=== PATIENT | female | born 1990 | race Caucasian/White ===

== ENCOUNTER 2017-07-30 11:27 | Emergency (ER) | payer OTHER ==
[2017-07-30 11:48] VITALS: RESP 16
--- NOTE | 2017-07-30 12:51 | EDPHY ---
HPI/HX/ROS/PE/MDM Narrative: CHIEF COMPLAINT: Abdominal pain HISTORY OF PRESENT ILLNESS: The patient is a 27 y/o female arriving with her boyfriend complaining of waxing and waning abdominal pain for the last week worsening yesterday. She initially had RLQ abdominal pain and was evaluated at an ED in [place]. She reports she had a normal RUQ and RLQ ultrasound and normal abdominal CT aside from mild constipation for which she has been taking Miralax. Her pain has never disappeared completely and has since started to radiate around to her right flank and has been present since onset. Her pain is sharp and stabbing in quality when it spikes. It does not change with food or position. Her last menstrual period was about 2.5 weeks ago and she denies chance of . She does not use any control. No fever, chills, cough, chest pain, shortness of breath, palpitations, vomiting , diarrhea, urinary complaints, abnormal vaginal discharge, headache, lightheadedness. No recent international travel. REVIEW OF SYSTEMS: Aside from elements discussed in the HPI, a comprehensive 10-point review of systems was reviewed and is negative. PAST MEDICAL HISTORY: Denies SOCIAL HISTORY: Employed. Boyfriend at bedside. Nonsmoker. Occasional wine. Denies illicit drug use. VITAL SIGNS: Reviewed by me GENERAL: Well-developed, well-nourished, resting comfortably in no respiratory distress. HEENT: Atraumatic. Eyes: No icterus, no injection. Mouth: moist mucous membranes. No erythema or lesions. Neck: supple with no adenopathy. LUNGS: Clear to auscultation bilaterally, no wheezes, rhonchi or rales. CARDIAC: Regular rate and rhythm, no rubs, murmurs or gallops. ABDOMEN: Soft, right low quadrant tenderness, no guarding or rebound. Tenderness on right lateral abdominal area, no adnexal tenderness, bowel sounds normal. BACK: No CVA tenderness. EXTREMITIES: No trauma. No edema. Range of motion is normal throughout. NEURO: Alert and oriented, grossly nonfocal. SKIN: Warm and dry, no rash. PSYCHIATRIC: Normal mentation, no agitation. Portions of this note were transcribed by a medical record administrator. I personally performed a history, physical exam, medical decision making, and confirmed accuracy of information the transcribed note. ED Course: This is a normally healthy 27 y/o female presenting with a one-week history of waxing and waning right-sided abdominal pain now radiating to her flank. When symptoms first appeared she was evaluated in an ED in [place] and had a completely normal work up and imaging studies. She has right-sided abdominal tenderness including her flank, but it is worst in the RLQ. She has no other associated symptoms that would be more indicative of appendicitis. Plan for IV, labs, pain management, and abdominal CT. 50mcg IV Fentanyl and 1L IV NS ordered. Abdominal CT shows a normal appendix and mild constipation. Labs are normal. Reevaluated patient and discussed work up. Patinet is frustrated regrarding failure of definitive diagnosis. Tearful and stating pain is persistant and very uncomfortable. Reports this is different from pain she has had related to constipation previously. Reviewed all labs and imaging findings with patient. Continues with RLQ disomfort; no guarding or rebound. Not worse than previously, just persistant. No adnexal tenderness. No nausea or urinary complaints. Asked patient to complete a standard treatment for constipation and to follow up with her PCP on Sun or . (has appt for 3 days from now.) Will treat with occasional oxycodone for severe discomfort as well as bently for spasmodic discomfort. Gave strict return precautions for worsening symptoms. She is comfortable with plan for discharge. Will add urine culture and LFTs to facilitate re-eval by Dr Read. MDM: The differential diagnosis for the patient's abdominal pain was considered including but not limited to ovarian cyst, urinary tract infection, related complications, kidney stone, constipation, gallstone, obstruction, and appendicitis. - Data Points Imaging Results: Imaging Impressions Abdomen CT 07/30/17 13:19 Impression: 1. No acute findings. 2. Constipation. 3. Additional findings as above. Findings discussed with Dr. Tram Fischer on July 30, 2017 at 1417 hours. Imaging: Discussed imaging studies w/ outbound call center representative Radiologist, I viewed and interpreted images myself Laboratory Results: Laboratory Results 07/30/17 12:40 07/30/17 12:40 07/30/17 07/30/17 07/30/17 12:40 12:40 12:30 WBC 6.27 10^3/uL 10^3/uL (3.80-9.50) RBC 4.97 10^6/uL 10^6/uL (4.18-5.33) Hgb 15.5 g/dL g/dL (12.6-16.3) Hct 44.9 % % (38.0-47.0) MCV 90.3 fL fL (81.5-99.8) MCH 31.2 pg pg (27.9-34.1) MCHC 34.5 g/dL g/dL (32.4-36.7) RDW 11.9 % % (11.5-15.2) Plt Count 265 10^3/uL 10^3/uL (150-400) MPV 10.5 fL fL (8.7-11.7) Neut % (Auto) 61.4 % % (39.3-74.2) Lymph % (Auto) 25.7 % % (15.0-45.0) Laurens % (Auto) 11.0 % % (4.5-13.0) Eos % (Auto) 1.1 % % (0.6-7.6) Baso % (Auto) 0.5 % % (0.3-1.7) Nucleat RBC Rel Count 0.0 % % (0.0-0.2) Absolute Neuts (auto) 3.85 10^3/uL 10^3/uL (1.70-6.50) Absolute Lymphs (auto) 1.61 10^3/uL 10^3/uL (1.00-3.00) Absolute Monos (auto) 0.69 10^3/uL 10^3/uL (0.30-0.80) Absolute Eos (auto) 0.07 10^3/uL 10^3/uL (0.03-0.40) Absolute Basos (auto) 0.03 10^3/uL 10^3/uL (0.02-0.10) Absolute Nucleated RBC 0.00 10^3/uL 10^3/uL (0-0.01) Immature Gran % 0.3 % % (0.0-1.1) Immature Gran # 0.02 10^3/uL 10^3/uL (0.00-0.10) Sodium 142 mEq/L mEq/L (135-145) Potassium 5.0 mEq/L mEq/L (3.5-5.2) Chloride 104 mEq/L mEq/L (97-110) Carbon Dioxide 25 mEq/l mEq/l (22-31) Anion Gap 13 mEq/L mEq/L (8-16) BUN 12 mg/dL mg/dL (7-23) Creatinine 0.8 mg/dL mg/dL (0.6-1.0) Estimated GFR > 60 Glucose 94 mg/dL mg/dL (70-100) Calcium 9.9 mg/dL mg/dL (8.5-10.4) Urine Color COLORLESS Urine Appearance CLEAR Urine pH 7.0 (5.0-7.5) Ur Specific Diagonal 1.001 L (1.002-1.030) Urine Protein NEGATIVE (NEGATIVE) Urine Ketones NEGATIVE (NEGATIVE) Urine Blood NEGATIVE (NEGATIVE) Urine Nitrate NEGATIVE (NEGATIVE) Urine Bilirubin NEGATIVE (NEGATIVE) Urine Urobilinogen NEGATIVE EU EU (0.2-1.0) Ur Leukocyte Esterase NEGATIVE (NEGATIVE) Urine RBC NONE SEEN /hpf /hpf (0-3) Urine WBC 1-3 /hpf /hpf (0-3) Ur Epithelial Cells TRACE /lpf /lpf (NONE-1+) Urine Bacteria TRACE /hpf H /hpf (NONE SEEN) Urine Glucose NEGATIVE (NEGATIVE) Urine Test 07/30/17 12:30 WBC RBC Hgb Hct MCV MCH MCHC RDW Plt Count MPV Neut % (Auto) Lymph % (Auto) Laurens % (Auto) Eos % (Auto) Baso % (Auto) Nucleat RBC Rel Count Absolute Neuts (auto) Absolute Lymphs (auto) Absolute Monos (auto) Absolute Eos (auto) Absolute Basos (auto) Absolute Nucleated RBC Immature Gran % Immature Gran # Sodium Potassium Chloride Carbon Dioxide Anion Gap BUN Creatinine Estimated GFR Glucose Calcium Urine Color Urine Appearance Urine pH Ur Specific Diagonal Urine Protein Urine Ketones Urine Blood Urine Nitrate Urine Bilirubin Urine Urobilinogen Ur Leukocyte Esterase Urine RBC Urine WBC Ur Epithelial Cells Urine Bacteria Urine Glucose Urine Test NEGATIVE Medications Given: Discontinued Medications Dicyclomine HCl (Bentyl) 20 mg PO EDNOW ONE Stop: 07/30/17 15:04 Last Admin: 07/30/17 15:09 Dose: 20 mg Fentanyl (Sublimaze) 50 mcg IVP EDNOW ONE Stop: 07/30/17 12:58 Last Admin: 07/30/17 13:16 Dose: 50 mcg Sodium Chloride (Ns) 1,000 mls @ 0 mls/hr IV ONCE ONE; Wide Open PRN Reason: Protocol Stop: 07/30/17 12:58 Last Admin: 07/30/17 13:17 Dose: 1,000 mls Oxycodone/Acetaminophen (Percocet 5/325) 1 tab PO EDNOW ONE Stop: 07/30/17 15:04 Last Admin: 07/30/17 15:09 Dose: 1 tab General Time Seen by Provider: 07/30/17 12:31 Initial Vital Signs: Initial Vital Signs Temperature (C) 36.8 C 07/30/17 11:35 Heart Rate 72 07/30/17 11:35 Respiratory Rate 16 07/30/17 11:35 Blood Pressure 128/79 H 07/30/17 11:35 O2 Sat (%) 98 07/30/17 11:35 O2 Delivery Mode Room Air Allergies/Adverse Reactions: No Known Allergies Allergy (Unverified 07/30/17 11:40) Home Medications: Medication Instructions Recorded Dicyclomine [Bentyl 20 MG (*)] 20 mg PO QID #20 tab 07/30/17 oxyCODONE/APAP 5/325 [Percocet 1 tab PO QID PRN #10 tab 07/30/17 5/325 (*)] Departure - Departure Disposition: Home, Routine, Self-Care Clinical Impression: Abdominal pain Qualifiers: Abdominal location: right upper quadrant Qualified Code(s): R10.11 - Right upper quadrant pain Constipation Qualifiers: Constipation type: other constipation type Qualified Code(s): K59.09 - Other constipation Condition: Good Instructions: Dicyclomine (By mouth), Oxycodone/Acetaminophen (By mouth), Constipation (ED), Acute Abdominal Pain (ED) Additional Instructions: 1. For constipation, take a bottle of Miralax and mix it with a liter of Gatorade. Drink the first half over 1 hour and drink the second have in 15- minute increments until it is gone. Do this while you will be home for several hours. 2. Increase fluid intake. 3. Follow up with your primary care provider as scheduled over the next few days. 4. Return to the ED for worsening of condition. Referrals: Melissa Read MD [Primary Care Provider] - As per Instructions Prescriptions: Dicyclomine [Bentyl 20 MG (*)] 20 mg PO QID #20 tab oxyCODONE/APAP 5/325 [Percocet 5/325 (*)] 1 tab PO QID PRN #10 tab PRN Reason: Pain Report Scribed for: Tram Fischer Report Scribed by: Nilam Candelaria Date of Report: 07/30/17 Time of Report: 12:51
[2017-07-30] MEDS ORDERED: NS 1,000 ML IV ONE (12:57)
[2017-07-30] MEDS ORDERED: fentaNYL 100 MCG/2 ML INJ IVP ONE (12:57)
[2017-07-30 13:04] LABS: PLATELET COUNT 265 10^3/uL (150-400)
[2017-07-30] MEDS ORDERED: IOPAMIDOL (ISOVUE-300) 100 ML BTL ONE (13:30)
[2017-07-30 13:59] VITALS: TEMP 98.1
[2017-07-30 14:55] VITALS: BP 143/94; PULSE 64; O2SAT 98
[2017-07-30] MEDS ORDERED: OXYCODONE/APAP 5/325 TAB PO ONE (15:03)
[2017-07-30] MEDS ORDERED: DICYCLOMINE 10 MG CAP PO ONE (15:03)
== END 2017-07-30 15:11 | disposition home or self-care (01) ==
DX: K59.09 Other constipation (principal); E86.9 Volume depletion, unspecified
CPT/HCPCS: 96374; J3010; Q9967

== ENCOUNTER → 2017-08-09 | Outpatient (CLI) | payer OTHER | LOC: FIMAGING 08:15 | PROVIDERS: ATTEND Family Medicine | DX: R10.11 Right upper quadrant pain (principal) | CPT/HCPCS: A9537 ==

== ENCOUNTER 2017-10-07 08:56 | Emergency (ER) | payer OTHER ==
--- NOTE | 2017-10-07 11:13 | EDPHY ---
H & P Smoking Status: Never smoked Time Seen by Provider: 10/07/17 09:48 HPI/ROS: CHIEF COMPLAINT: Left foot pain HISTORY OF PRESENT ILLNESS: 27-year-old female presents to the emergency department with pain in her left foot. The patient denies any known trauma or injury. She noted some redness but more so with some ecchymosis especially over last 2 days and is now having difficulty walking on it. She was concerned about possible blood clot. She states that she was on her feet quite a bit recently which may have made the foot worse. Pain is especially worse with bearing weight. She feels pretty comfortable when she is not bearing weight and she is lying in bed. ROS: Denies fevers or chills, swelling, pain in left ankle or calf. (Anastasia Michel) Past Medical/Surgical History: Orthopedic injuries (Anastasia Michel) Social History: Single and lives in [place] (Anastasia Michel) Physical Exam: On examination the patient has reproducible pain with palpation especially over the dorsal lateral aspect of her left foot over the cuboid bone. This is proximal to the base of the 5th metatarsal. She has no pain with palpation of the base of the 5th metatarsal. Nontender to palpate the ankle. She has full flexion and extension of her ankle. No ligament instability. There is no redness or warmth or signs of cellulitis. There is some resolving ecchymosis noted. She has normal sensation to light touch with normal 2 point discrimination. Strong dorsalis pedis pulse on the dorsal aspect of the left foot. (Anastasia Michel) Constitutional: Initial Vital Signs Temperature (C) 37.1 C 10/07/17 09:05 Heart Rate 68 10/07/17 09:05 Respiratory Rate 18 10/07/17 09:05 Blood Pressure 136/82 H 10/07/17 09:05 O2 Sat (%) 99 10/07/17 09:05 O2 Delivery Mode Room Air Allergies/Adverse Reactions: No Known Allergies Allergy (Verified 10/07/17 09:05) Home Medications: Medication Instructions Recorded DEXILANT 10/07/17 MDM/Departure - MDM Imaging: I viewed and interpreted images myself - MDM Procedures: Patient was placed in a postop shoe and examined post application in good placement with normal [employer]MENT[employer]. (Anastasia Michel) ED Course/Re-evaluation: 27-year-old female presents to the emergency department with left foot pain. No evidence of cellulitis. I do not think antibiotics are indicated. She does have palpable bony tenderness. X-rays reveal no fractures. She was placed in postop shoe and given orthopedic referral. (Anastasia Michel) I did not see this patient while she was in the emergency department. However her care was discussed with the PA while the patient was in the department. I agree with treatment plan and management (Josh Hyman) - Depart Disposition: Home, Routine, Self-Care Clinical Impression: Sprain of left foot Condition: Good Instructions: Foot Sprain (ED), Arthralgia (ED) Additional Instructions: Ibuprofen 600mg every 8 hours for pain as directed. Post op shoe for comfort and support. Activity as tolerated. Referrals: Melissa Read MD [Primary Care Provider] - As per Instructions
[2017-10-07 11:46] VITALS: BP 127/76
== END 2017-10-07 11:46 | disposition home or self-care (01) ==
DX: S93.602A Unspecified sprain of left foot, initial encounter (principal); X58.XXXA Exposure to other specified factors, initial encounter